=== PATIENT | female | born 1980 | race Caucasian/White ===

== ENCOUNTER 2018-04-11 09:28 | Day surgery (SDC) | payer OTHER ==
[~2018-04-11 09:28] MED LIST: PROPOFOL 200 MG INJ
[2018-04-11] MEDS ORDERED: MIDAZOLAM 1 MG/ML 2 ML INJ (11:25)
[2018-04-11] MEDS ORDERED: PROPOFOL 20 ML (11:25)
[2018-04-11] MEDS ORDERED: LIDOCAINE 2% (SDV) 5 ML INJ (11:25)
[2018-04-11] MEDS ORDERED: ETOMIDATE 20 MG INJ (11:25)
== END 2018-04-11 14:03 | disposition home or self-care (01) ==
LOC: GIL 09:28
DX: Z12.11 Encounter for screening for malignant neoplasm of colon (principal); K64.8 Other hemorrhoids; K21.9 Gastro-esophageal reflux disease without esophagitis
CPT/HCPCS: 43239; 88305; 88312